=== PATIENT | male | born 1985 | race African-American/Black ===

== ENCOUNTER 2019-09-12 01:55 | Inpatient (IN) | payer SELFPAY ==
[~2019-09-12] VITALS: Ht 182.9 cm; Wt 86.2 kg
[2019-09-12 01:55] VITALS: BP 136/73
--- NOTE | 2019-09-12 01:55 | NUR ---
to bed #06 brought in by CARE with c/o altered mental status, possible meth, ecstasy used.JAZ LOYOLA WAS ON SCENE.PUPILS DILATED , WITH INJURY ON HIS RT HAND , ABRASSION
--- NOTE | 2019-09-12 02:20 | NUR ---
34 YO MALE BIBA FOR DRUG USE. [employer] ON SCENE. NO HOLD PLACED, PT DOES NOT WANT TO HURT SELF OR OTHERS. PT ADMITTED TO USING METH AND ECTASY TODAY. PT HAS SKIN TEAR ON RIGHT PALM. CLEANED WOUND. PT STATES HE HAS ANXIETY AND DID NOT TAKE HIS MEDS TODAY. NO OTHER HX OR RX MED INFORMATION WAS ABLE TO BE OBTAINED FROM PT.
[2019-09-12 03:01] LABS: BASOPHILS # (AUTO) 0.1 K/uL (0.00-0.22); EOSINOPHILS % (AUTO) 0.1 % (0.0-4.0); LYMPHOCYTES # (AUTO) 0.6 K/uL (2.0-11.5); MEAN CORPUSCULAR HEMOGLOBIN 31 pg (27-31); MEAN CORPUSCULAR HGB CONC 34 g/dL (33-37); NEUTROPHILS % (AUTO) 84.3 % (42.2-75.2); PLATELET COUNT (AUTO) 239 K/uL (140-450); RED BLOOD CELL COUNT(AUTO) 4.89 MIL/uL (4.20-6.10); RED CELL DISTRIBUTION WIDTH 13.3 % (11.6-13.7); WHITE BLOOD COUNT (AUTO) 10.7 K/uL (4.8-10.8)
[2019-09-12 03:20] LABS: ALBUMIN 3.9 g/dL (3.4-5.0); ANION GAP 11.1 (8-16); CARBON DIOXIDE 30.1 mmol/L (21-32); POTASSIUM 3.2 mmol/L (3.5-5.1); TOTAL BILIRUBIN 0.7 mg/dL (0.0-1.0)
[2019-09-12] MEDS ORDERED: LORazepam 2 MG/ML VIAL IVP ONE (03:20)
--- NOTE | 2019-09-12 03:22 | NUR ---
X-Ray at bedside.
[2019-09-12 03:29] LABS: CREATINE KINASE MB 37.1 ng/mL (0-3.6)
[2019-09-12 03:39] LABS: LYMPHOCYTES % (AUTO) 5.6 % (20.5-51.1)
--- NOTE | 2019-09-12 04:02 | NUR ---
PT SLEEPING IN BED. ONE SIDE RAIL UP FOR SAFETY.
--- NOTE | 2019-09-12 04:58 | NUR ---
PT SLEEPING IN BED WIT ONE SIDE RAIL UP. VSS.
[2019-09-12] MEDS ORDERED: NACL 0.9% 1,000 ML IV ONE ×3 (05:05→07:20)
--- NOTE | 2019-09-12 05:45 | NUR ---
PATIENT SLEEPING IN BED. PT IS RECIEVING FLUIDS. ALL VSS. ONE SIDE RAIL UP FOR SAFETY.
--- NOTE | 2019-09-12 06:27 | NUR ---
DR SON REQ URINE. ATTEMPTED BAXTER D/T PT NOT BEING ABLE TO WAKE UP. PT SLAPPED MY HAND AWAY, AND WILL NOT URINATE IN THE URINAL AT THIS TIME.
--- NOTE | 2019-09-12 07:06 | NUR ---
report received from mohini devine. transfer of care at this time
[2019-09-12] MEDS ORDERED: ASPIRIN 81 MG TAB.CHEW PO ONE (07:15)
--- NOTE | 2019-09-12 07:38 | NUR ---
PT REFUSES TO GIVE URINE AT THIS TIME. WILL FOLLW UP.
[2019-09-12] MEDS ORDERED: NACL 0.9% 1,000 ML IV SCH (07:39)
[2019-09-12] MEDS ORDERED: DOCUSATE SODIUM 100 MG GELCAP PO PRN (07:40)
[2019-09-12] MEDS ORDERED: ONDANSETRON 4 MG/2 ML VIAL IM/IVP PRN (07:40)
[2019-09-12] MEDS ORDERED: ACETAMINOPHEN 325 MG TAB PO PRN (07:40)
[2019-09-12] MEDS ORDERED: HYDROcodone/APAP 7.5/325 MG 1 TAB PO PRN (07:40)
--- NOTE | 2019-09-12 07:44 | NUR ---
Dr. Brandon is evaluating the patient at bedside.
[2019-09-12 08:30] VITALS: BP 140/86
--- NOTE | 2019-09-12 08:36 | NUR ---
RECEIVED PT FROM ER. REPORT GIVEN BY LETTY LESLIE. PT CAME TO UNIT [facility]. PT IS AWAKE AND ALERT AND RESPONSIVE. PT IS SITTING IN BED AT THIS TIME. SAFETY MEASURES IN CHECK. SKIN INTACT. ID BAND ON PATIENT. PT'S BELONGINGS WITH PATIENT. WILL CONTINUE TO MONITOR. CALL LIGHT IN REACH
--- NOTE | 2019-09-12 08:36 | NUR ---
Patient will be admitted to care of [facility], [facility]. Admited to TELE. Will go to room 110B. Belongings list completed. Report to MARIAMA VILLEDA.
[2019-09-12 08:43] LABS: PROTHROMBIN TIME 10.4 secs (10.8-13.4)
[2019-09-12] MEDS ORDERED: PANTOPRAZOLE 40 MG TABEC PO SCH (09:00)
[2019-09-12] MEDS ORDERED: NITROGLYCERIN 0.4 MG TAB SL ONE (09:20)
[2019-09-12] MEDS ORDERED: NITROGLYCERIN 0.4 MG TAB SL SCH (09:29)
[2019-09-12] MEDS ORDERED: NITROGLYCERIN 0.4 MG TAB SL PRN (09:55)
[2019-09-12] MEDS ORDERED: LORazepam 1 MG TAB PO PRN (10:05)
[2019-09-12 10:27] LABS: BARBITURATE, URINE NEG. ng/ml (NEG <=200); BENZODIAZEPINE, URINE NEG. ng/mL (NEG <=200); CANNABINOID, URINE NEG. ng/mL (NEG <=50); COCAINE, URINE NEG. ng/mL (NEG <=300); OPIATE, URINE NEG. ng/mL (NEG <=2000); PHENCYCLIDINE SCREEN,URINE NEG. ng/mL (NEG <=25)
[2019-09-12] MEDS ORDERED: ALBUTEROL SULFATE/IPRATROPIU 3 ML SOL IH PRN (10:35)
[2019-09-12 10:53] LABS: BILIRUBIN,URINE NEGATIVE (NEGATIVE); BLOOD, URINE 1+ (NEGATIVE); COLOR,URINE YELLOW (YELLOW); LEUKOCYTE ESTERASE ,URINE NEGATIVE (NEGATIVE); NITRITE, URINE NEGATIVE (NEGATIVE); UGLUCOSE NEGATIVE (NEGATIVE)
[2019-09-12 11:00] LABS: ACETAMINOPHEN < 0.5 ug/ml (10-30)
[2019-09-12 11:16] LABS: WBC,URINE 0-5 /HPF (0-5)
[2019-09-12 11:18] LABS: APPEARANCE,URINE SLIGHTLY HAZY (CLEAR)
--- NOTE | 2019-09-12 11:47 | NUR ---
DISCHARGE PLANNING: THIS IS A 34 Y/O MALE PATIENT FROM HOME, WHO CAME IN DUE TO SHORTNESS OF BREATH AND SHARP CHEST PAIN X 1 DAY. PAST MEDICAL HISTORY INCLUDE ASTHMA, ANXIETY AND PANIC DISORDER. INITIAL DIAGNOSIS OF ELEVATED TROPONIN AND DRUGS INGESTION. CURRENT LABS INCLUDE WBC 10.7, H/H 15.0/44.0, NA/K 140/3.2, BUN/CREA 16/1.0, TROP 0.049. GI AND CARDIO CONSULTS IN PLACE. UDS SHOWED POSITIVE FOR AMPHETAMINES. ON ROCEPHIN. DC PLAN BACK TO HOME ONCE STABLE.
--- NOTE | 2019-09-12 12:10 | NUR ---
PT WAS SEEN IN THE HALLWAY. WHEN APPROACHED PT SAID THAT HE WANTS TO GO HOME. NOTIFIED DR PRINCE. IN THE MEAN TIME PT PULLED OUT HIS IV. NOTED WITH BLEEDING. GAUZE WAS PLACED AND TAPED. REQUESTED PATIENT TO WAIT UNTIL THE DR SEES HIM. NOTIFIED SECURITY. DR PRINEC EXPLAINED THE RISKS AND BENEFITS AND THE CONSEQUENCES OF HIS ACTION. PER DR PRINCE AMA FORM WAS SIGNED BY PATIENT AND THE DR. ID BAND WAS REMOVED. RISKS AND BENEFITS WAS ALSO EXPLAINED. PT WALKED OUT OF THE HOSPITAL. SECURITY PRESENT AT THIS TIME. NOTIFIED CHARGE NURSE.
[2019-09-12 12:18] LABS: SALICYLATE < 2.8 mg/dL (2.8-20.0)
[2019-09-12] MEDS ORDERED: LORazepam 1 MG TAB PO SCH (13:00)
[2019-09-12 14:19] LABS: CHOL/HDL RATIO 2.4 (1-4.5); FREE T4 (FREE THYROXINE) 1.21 ng/dL (0.76-1.46); MAGNESIUM 1.8 mg/dL (1.8-2.4); PHOSPHORUS 2.3 mg/dL (2.5-4.9); THYROID STIMULATING HORMONE 0.79 uIU/mL (0.34-3.74)
[2019-09-12] MEDS ORDERED: METOPROLOL 25 MG TAB PO SCH (21:00)
[2019-09-13 06:08] LABS: T4 (THYROXINE) 8.5 ug/dL (4.5-12.0)
[2019-09-13 06:08] LABS: HEPATITIS A ANTIBODY IGM Negative (Negative); HEPATITIS B CORE AB TOTAL Negative (Negative); HEPATITIS B SURFACE ANTIBODY Reactive (.); HEPATITIS B SURFACE ANTIGEN Negative (Negative)
[2019-09-13] MEDS ORDERED: FOLIC ACID 1 MG TAB PO SCH (09:00)
[2019-09-13] MEDS ORDERED: THIAMINE 100 MG TAB PO SCH (09:00)
[2019-09-13] MEDS ORDERED: ASPIRIN 81 MG TAB.CHEW PO SCH (09:00)
[2019-09-13] MEDS ORDERED: MULTIVITAMIN 1 TAB PO SCH (09:00)
[2019-09-13] MEDS ORDERED: LISINOPRIL 5 MG TAB PO SCH (09:00)
== END 2019-09-12 12:15 | disposition left against medical advice (07) | DRG 872 ==
LOC: MED 01:55 → MTU 07:39
PROVIDERS: ADMIT General Practice; ATTEND General Practice
DX: A41.9 Sepsis, unspecified organism (principal); M94.0 Chondrocostal junction syndrome [Tietze]; R74.0 Nonspecific elevation of levels of transaminase and lactic acid dehydrogenase [LDH]; E87.6 Hypokalemia; F41.9 Anxiety disorder, unspecified; J45.909 Unspecified asthma, uncomplicated; J06.9 Acute upper respiratory infection, unspecified; F10.10 Alcohol abuse, uncomplicated; F17.210 Nicotine dependence, cigarettes, uncomplicated
CPT/HCPCS: 36415; 71045; 80053; 80305; 81001; 82140; 82150; 82550; 82553; 83036; 83605; 83690; 83735; 83880; 84100; 84436; 84439; 84443; 84479; 84484; 85025; 85379; 85610; 85730; 86704; 86706; 86708; 86709; 86803; 87040; 87081; 87086; 87340; 93005; 96360; 96361; 99285; G0480; G0482; J0696; J2060; J7030; J7060; Q0092

== ENCOUNTER 2021-05-19 21:01 | Emergency (ER) | payer MEDICAID ==
[~2021-05-19] VITALS: Ht 182.9 cm; Wt 90.7 kg
--- NOTE | 2021-05-19 21:01 | NUR ---
PT SHANE NEALS WITH [employer], PREBOOK. TAKEN TO BED 8
--- NOTE | 2021-05-19 21:03 | NUR ---
Dr. Roth examining patient.
[2021-05-19 21:06] VITALS: BP 135/89
[2021-05-19] MEDS ORDERED: NACL 0.9% 2,000 ML IV ONE ×2 (21:10)
--- NOTE | 2021-05-19 21:47 | NUR ---
REPORT RECEIVED FROM MARIAMA COREAS FOR CONTINUITY OF PT CARE AT THIS TIME.
[2021-05-19] MEDS ORDERED: AMMONIA AROMATIC 1 INHL INH ONE (22:15)
--- NOTE | 2021-05-19 22:17 | NUR ---
AMMONIA INH ADMINISTERED AT 2115 PER CHARGE NURSE INDER.
[2021-05-19 22:21] VITALS: BP 144/91
--- NOTE | 2021-05-19 22:21 | NUR ---
PT LAYING IN BED LOCKED IN LOWEST POSITION W X2 SIDERAILS UP FOR PT SAFETY. GCS 8, PERRL 3MM. PT NOT VERBALLY RESPONDING TO QUESTIONS, AND KEEPS EYES CLOSED. PT MOVES READJUSTING SELF SLIGHTLY IN BED. VSS, BUT TACHYCARDIC AT 104. BREATHING EVEN AND UNLABORED. NAD NOTED, WILL CONTINUE TO MONITOR. PD AT BEDSIDE.
--- NOTE | 2021-05-19 22:45 | NUR ---
PT AWAKE, URINATING ON FLOOR, REFUSING TO USE BATHROOM INSTEAD. PT AMBULATORY W STEADY GAIT, HANDCUFFED. PD AT BEDSIDE.
--- NOTE | 2021-05-19 22:50 | NUR ---
PATIENT [facility] [employer]. PATIENT EXAMINED BY DR. SOTELO. PATIENT MEDICALLY CLEARED AND RELEASED IN CUSTODY IN STABLE CONDITION. ORIGINAL PRE-BOOK FORM GIVEN TO OFFICER MATEO AT BEDSIDE.
== END 2021-05-19 22:50 ==
LOC: MED 21:01
DX: Z02.89 Encounter for other administrative examinations (principal); J45.909 Unspecified asthma, uncomplicated
CPT/HCPCS: 94664; 96360; 99283; J7030